=== PATIENT | female | born 2000 | race Hispanic/Latino ===

== ENCOUNTER 2022-09-24 00:30 | Emergency (ER) | payer OTHER ==
[~2022-09-24] VITALS: Ht 162.6 cm; Wt 59.0 kg
[2022-09-24 00:38] VITALS: BP 112/71
[2022-09-24] MEDS ORDERED: FAMOTIDINE 20MG VIAL IV ONE (01:30)
[2022-09-24] MEDS ORDERED: SOLU-MEDROL 125MG VIAL IVP ONE (01:30)
[2022-09-24] MEDS ORDERED: EPINEPHRINE PF 1MG (1:1,000) 1 MG/ML AMP IM ONE (01:30)
[2022-09-24] MEDS ORDERED: DiphenhydrAMINE HCL 50 MG/ML VIAL IV ONE (01:30)
[2022-09-24] MEDS ORDERED: FAMO-136 PO (02:27)
[2022-09-24] MEDS ORDERED: PRED20TA3 PO (02:27)
[2022-09-24] MEDS ORDERED: DIPH50 PO (02:27)
== END 2022-09-24 02:30 | disposition home or self-care (01) ==
LOC: EDH 00:30
DX: T78.40XA Allergy, unspecified, initial encounter (principal); Z79.52 Long term (current) use of systemic steroids; X58.XXXA Exposure to other specified factors, initial encounter
CPT/HCPCS: 99284; 96374; 96375; 96372; J1200; J3490; J2930; J0171